=== PATIENT | female | born 1995 | race American Indian/Alaskan Native ===

== ENCOUNTER 2019-05-25 10:54 | Emergency (ER) | payer SELFPAY ==
[2019-05-25 11:19] VITALS: BP 121/90
--- NOTE | 2019-05-25 12:04 | XRay Report ---
RIGHT HAND 3 VIEWS INDICATION: PAIN/SWELLING R/T INJURY. COMPARISON: No relevant prior imaging study available. FINDINGS: There is a predominantly transverse fracture through the distal shaft of the little finger metacarpal with mild volar angulation of the distal fracture fragment. No additional fractures are seen. There is mild ulnar sided soft tissue swelling. IMPRESSION: 1. Boxer's fracture at the finger metacarpal. Signer Name: Lizandro Alexander MD Signed: 05/25/2019 11:59 AM Workstation Name: [email or web address]
== END 2019-05-25 20:08 | disposition left against medical advice (07) ==
LOC: ED 10:54
DX: M79.641 Pain in right hand (principal); Z53.21 Procedure and treatment not carried out due to patient leaving prior to being seen by health care provider

== ENCOUNTER 2019-07-14 13:48 | Emergency (ER) | payer SELFPAY ==
[2019-07-14 14:58] VITALS: BP 135/75
--- NOTE | 2019-07-14 14:59 | Emergency Department Report ---
Chief Complaint: Medical Clearance Stated Complaint: POSS PREG Time Seen by Provider: 07/14/19 14:57 - Exam Vital Signs: Vital Signs 07/14/19 14:55 Temperature 97.9 F Pulse Rate 86 Respiratory 18 Rate Blood Pressure 135/75 O2 Sat by Pulse 100 Oximetry MSE screening note: Ms. Montgomery presents with missed period. No pain or vaginal bleeding. Wants to rule out . MSe completed. Given outpatient instructions. ED Disposition for MSE Condition: Stable
== END 2019-07-14 16:03 | disposition left against medical advice (07) ==
LOC: ED 13:48
DX: Z53.21 Procedure and treatment not carried out due to patient leaving prior to being seen by health care provider (principal)

== ENCOUNTER 2019-08-08 15:12 | Emergency (ER) | payer SELFPAY ==
--- NOTE | 2019-08-08 17:32 | Event Note ---
ED Screening Note ED Screening Note: The patient was seen in triage for and went to clinic and they advised her to come to ED as they couldnt find a pole or HR. Labs/imaging ordered to evaluate for a cause of this complaint. Vital signs reviewed, patient awake and alert in NAD. This initial assessment/diagnostic orders/clinical plan/treatment(s) is/are subject to change based on patients health status, clinical progression and re- assessment by fellow clinical providers in the ED. Further treatment and workup at subsequent clinical providers discretion. Patient/guardian urged not to elope from the ED as their condition may be serious if not clinically assessed and managed. Initial orders include:
--- NOTE | 2019-08-08 19:35 | Emergency Department Report ---
ED HPI - General Chief complaint: Recheck/Abnormal Lab/Rx Stated complaint: MISCARRAGE Time Seen by Provider: 08/08/19 17:27 Source: patient Mode of arrival: Ambulatory Limitations: No Limitations - History of Present Illness Initial comments: Patient is a 23-year-old female presents emergency room with complaints of an issue with her ultrasound. She states that she went to a clinic in [place] about her first ultrasound today and states that they could not find a heartbeat but states that they saw a gestational sac and was advised to be seen in the ED. she states that she is approximately 7 weeks . She states her last menstrual cycle was June 13. She denies any vaginal bleeding, urinary symptoms, abdominal pain, nausea, vomiting, diarrhea. She has a past medical history of asthma. She denies any allergies to medications. /P:2/A:0 - Related Data Allergies Allergy/AdvReac Type Severity Reaction Status Date / Time No Known Allergies Allergy Unverified 05/25/19 10:55 ED Review of Systems ROS: Stated complaint: MISCARRAGE Other details as noted in HPI Comment: All other systems reviewed and negative ED Past Medical Hx - Past Medical History Previous Medical History?: Yes Hx Asthma: Yes - Surgical History Past Surgical History?: Yes - Social History Smoking Status: Never Smoker Substance Use Type: None ED Physical Exam - General Limitations: No Limitations General appearance: alert, in no apparent distress - Head Head exam: Present: atraumatic, normocephalic - Eye Eye exam: Present: normal appearance - ENT ENT exam: Present: mucous membranes moist - Respiratory Respiratory exam: Present: normal lung sounds bilaterally. Absent: respiratory distress, wheezes, rales, rhonchi, stridor, chest wall tenderness, accessory muscle use, decreased breath sounds, prolonged expiratory - Cardiovascular Cardiovascular Exam: Present: regular rate, normal rhythm, normal heart sounds. Absent: systolic murmur, diastolic murmur, rubs, gallop - GI/Abdominal GI/Abdominal exam: Present: soft, normal bowel sounds. Absent: distended, tenderness, guarding, rebound, rigid - Neurological Exam Neurological exam: Present: alert, oriented X3 - Psychiatric Psychiatric exam: Present: normal affect, normal mood - Skin Skin exam: Present: warm, dry, intact ED Course Vital Signs 08/08/19 08/08/19 08/08/19 15:17 17:28 19:50 Temperature 97.8 F 97.8 F Pulse Rate 79 83 90 Respiratory 18 18 18 Rate Blood Pressure 89/72 124/77 Blood Pressure 124/77 131/86 [Left] O2 Sat by Pulse 100 99 100 Oximetry ED Medical Decision Making - Lab Data Lab Results 08/08/19 08/08/19 Range/Units 17:32 17:32 HCG, Quant 21021 H (0-4) mIU/mL Blood Type O POSITIVE Ord Rhogam Gestat Weeks Rh pos WEEKS - Radiology Data Radiology results: report reviewed Obstetrical ultrasound. HISTORY: Pelvic pain. FINDINGS: The uterus measures 11.1 x 6.7 x 8.1 cm. A gestational sac dated 7 weeks contains no yolk sac or pole. Right ovary measures 3.5 x 2.1 x 4.1 cm and contains a 2.3 cm complex lesion. Left ovary measures 3.1 x 2.1 x 3.2 cm. Both ovaries contain flow. IMPRESSION: 1. And a gestational sac dated 7 weeks. 2. Small complex lesion right ovary is nonspecific. Most likely, this represents a hemorrhagic cyst. Signer Name: Carlos Aguiar MD Signed: 08/08/2019 7:28 PM Workstation Name: [id number] Transcribed By: ES Dictated By: Carlos Aguiar MD Electronically Authenticated By: Carlos Aguiar MD Signed Date/Time: 08/08/191927 DD/ 25 TD/TT: - Medical Decision Making Patient is a 23-year-old female presents emergency room with complaints of an issue with her ultrasound. She states that she went to a clinic in [place] about her first ultrasound today and states that they could not find a heartbeat but states that they saw a gestational sac and was advised to be seen in the ED. she states that she is approximately 7 weeks . She states her last menstrual cycle was June 13. She denies any vaginal bleeding, urinary symptoms, abdominal pain, nausea, vomiting, diarrhea. She has a past medical history of asthma. She denies any allergies to medications. /P:2/A:0[place] [address]. pt is Rh positive. OB US: 1. And a gestational sac dated 7 weeks. 2. Small complex lesion right ovary is nonspecific. Most likely, this represents a hemorrhagic cyst. Discussed ultrasound findings with patient. Advised patient that she would need to have a repeat hCG quant in 2 days. Patient has gestational sac but no yolk sac or heart rate, discussed with the patient that this could be due to early or could be due to miscarriage. Discussed the importance of follow-up with patient. advised pt to please take a vitamin over the counter daily. you need to have a repeat hcg quant in 2 days. please follow up with the [facility]. Return to the emergency room for any new or worsening symptoms. - Differential Diagnosis IUP, ectopic, molar , threatened miscarriage, ovarian cyst Critical care attestation.: If time is entered above; I have spent that time in minutes in the direct care of this critically ill patient, excluding procedure time. ED Disposition Clinical Impression: Threatened miscarriage, Right ovarian cyst Disposition: DC- TO HOME OR SELFCARE Is pt being admited?: No Does the pt Need Aspirin: No Condition: Stable Instructions: Threatened Miscarriage (ED) Additional Instructions: please take a vitamin over the counter daily. you need to have a repeat hcg quant in 2 days. please follow up with the [facility]. Return to the emergency room for any new or worsening symptoms. Referrals: [facility] [Provider Group] - 2-3 Days [facility] [Provider Group] - 2-3 Days [facility] [Provider Group] - 2-3 Days Time of Disposition: 19:38 Print Language: PARAGUAYAN
[2019-08-08 20:05] VITALS: BP 131/86
== END 2019-08-08 19:50 | disposition home or self-care (01) ==
LOC: ED 15:12
DX: O20.0 Threatened abortion (principal); O99.511 Diseases of the respiratory system complicating pregnancy, first trimester; O34.81 Maternal care for other abnormalities of pelvic organs, first trimester; N83.291 Other ovarian cyst, right side; J45.909 Unspecified asthma, uncomplicated; Z3A.01 Less than 8 weeks gestation of pregnancy
CPT/HCPCS: 36415; 76801; 76817; 84702; 86900; 86901; 99283

== ENCOUNTER 2019-08-10 09:38 | Emergency (ER) | payer SELFPAY ==
[2019-08-10 09:48] VITALS: BP 120/64
--- NOTE | 2019-08-10 12:02 | Emergency Department Report ---
Chief Complaint: Medical Clearance Stated Complaint: POSS MISCARRAGE - HPI History of Present Illness: 23 y/o female returns to ER to have HCG repeated. Patient was seen on 08/08/19 [place] [address] [place] [address]. US from 08/08/19 shows a 7 week gestational sack with no yolk. Denies any pain or vag spotting. - Exam Vital Signs: Vital Signs 08/10/19 09:43 Temperature 98.5 F Pulse Rate 85 Respiratory 18 Rate Blood Pressure 120/64 O2 Sat by Pulse 95 Oximetry Physical Exam: AxO times 3 NAD MSE screening note: Focused history and physical exam performed. Due to findings the following was ordered: 23 y/o female returns to ER to have HCG repeated. Patient was seen on 08/08/19 [place] [address] [place] [address]. US from 08/08/19 shows a 7 week ges tational sack with no yolk. ED Medical Decision Making - Lab Data Lab Results 08/10/19 Range/Units 10:11 HCG, Quant 40814 H (0-4) mIU/mL - Radiology Data Radiology results: report reviewed Patient: GAY MILIAN MR#: [id number] : 1995 Acct:[id number] Age/Sex: 23 / F ADM Date: 08/08/19 Loc: ED Attending Dr: Ordering Physician: IRASEMA FLAHERTY Date of Service: 08/08/19 Procedure(s): US OB transvaginal Accession Number(s): [id number] cc: IRASEMA FLAHERTY Obstetrical ultrasound. HISTORY: Pelvic pain. FINDINGS: The uterus measures 11.1 x 6.7 x 8.1 cm. A gestational sac dated 7 weeks contains no yolk sac or pole. Right ovary measures 3.5 x 2.1 x 4.1 cm and contains a 2.3 cm complex lesion. Left ovary measures 3.1 x 2.1 x 3.2 cm. Both ovaries contain flow. IMPRESSION: 1. And a gestational sac dated 7 weeks. 2. Small complex lesion right ovary is nonspecific. Most likely, this represents a hemorrhagic cyst. Signer Name: Carlos Aguiar MD Signed: 08/08/2019 7:28 PM Workstation Name: [id number] Transcribed By: ES Dictated By: Carlos Aguiar MD Electronically Authenticated By: Carlos Aguiar MD Signed Date/Time: 08/08/191927 DD/ 25 TD/TT: ED Disposition for MSE Clinical Impression: Threatened miscarriage Disposition: Z- MED SCREENING EXAM-LEFT Is pt being admited?: No Does the pt Need Aspirin: No Condition: Stable Additional Instructions: Recommend to follow up at your [facility] . Need to have a repeat US in 2 weeks. Referrals: [facility], [Primary Care Provider] - 3-5 Days [facility] [Provider Group] - 3-5 Days [facility] [Provider Group] - 3-5 Days
== END 2019-08-10 12:44 | disposition left against medical advice (07) ==
LOC: ED 09:38
DX: O20.0 Threatened abortion (principal); Z3A.01 Less than 8 weeks gestation of pregnancy
CPT/HCPCS: 36415; 84702; 99282

== ENCOUNTER 2019-08-25 21:28 | Emergency (ER) | payer SELFPAY ==
[2019-08-25 22:43] VITALS: BP 129/80
[2019-08-25 23:19] LABS: Basophils % (Auto) 0.9 % (0.0-1.8); Eosinophils # (Auto) 0.1 K/mm3 (0.0-0.4); Eosinophils % (Auto) 1.4 % (0.0-4.3); Hemoglobin 12.5 gm/dl (10.1-14.3); Lymphocytes # (Auto) 2.3 K/mm3 (1.2-5.4); Lymphocytes % (Auto) 51.5 % (13.4-35.0); Mean Corpuscular HGB Conc 34 % (30-34); Mean Corpuscular Volume 81 fl (79-97); Monocytes # (Auto) 0.3 K/mm3 (0.0-0.8); Monocytes % (Auto) 7.7 % (0.0-7.3); Platelet Count 178 K/mm3 (140-440); Red Blood Count 4.59 M/mm3 (3.65-5.03); Red Cell Distribution Width 15.8 % (13.2-15.2)
[2019-08-26 00:19] LABS: Bilirubin,Urine NEG (Negative); Blood,Urine NEG (Negative); Calcium Oxalate Crystals,Urine 2+; Color,Urine Yellow (Yellow); Mucus,Urine 3+ /HPF; Protein,Urine <15 mg/dL mg/dL (Negative); Urobilinogen,Urine < 2.0 mg/dL (<2.0)
--- NOTE | 2019-08-26 01:02 | Ultrasound Report ---
US OB <= 14 weeks fetus INDICATION / CLINICAL INFORMATION: vaginal bleed. COMPARISON: 08/08/2019 FINDINGS: A gestational sac measuring 3.0 cm is seen in the uterus. No pole or yolk sac is identified. Th e ovaries are normal in size and appearance. IMPRESSION: Gestational sac in the uterus without a pole or yolk sac identified. Gestational sac measures 8 weeks 1 day gestational age Signer Name: Dash Broussard MD FACR Signed: 08/26/2019 12:57 AM Workstation Name: [email or web address]
[2019-08-26] MEDS ORDERED: HALOPERIDOL LACTATE 5 MG/1 ML INJ ONE (01:26)
--- NOTE | 2019-08-26 01:26 | Emergency Department Report ---
ED Female HPI - General Chief complaint: Vaginal Bleeding Stated complaint: VAGINAL BLEED (PREG) Time Seen by Provider: 08/26/19 01:16 Source: patient Mode of arrival: Ambulatory Limitations: No Limitations - History of Present Illness Initial comments: Patient reports vaginal bleeding that started today. She says she has had vaginal bleeding on and off antedates more and she when she wipes she sees blood. She says she is but is not sure how far along she is. Last menstrual period was 06/13/2019. Medical records report patient was here twice in July and she had hormone done. She also had ultrasound done which shows that she was 7 weeks on August 07 Complaint: vaginal bleeding, pelvic pain -: This afternoon Radiation: suprapubic Severity: moderate Severity scale (0 -10): 6 Quality: cramping Consistency: intermittent Improves with: none Worsens with: none Are you Now?: Yes Associated Symptoms: vaginal bleeding, abdominal pain. denies: vaginal discharge, nausea/vomiting, fever/chills, headaches, loss of appetite, dysuria, hematuria, rash, seizure, shortness of breath, syncope, weakness - Related Data Sexually active: Yes Allergies Allergy/AdvReac Type Severity Reaction Status Date / Time No Known Allergies Allergy Verified 08/26/19 01:33 ED Review of Systems ROS: Stated complaint: VAGINAL BLEED (PREG) Other details as noted in HPI Constitutional: denies: chills, fever, weakness ENT: denies: ear pain, throat pain, congestion Respiratory: denies: cough, orthopnea, shortness of breath, SOB with exertion, SOB at rest, stridor, wheezing Cardiovascular: denies: chest pain, palpitations, dyspnea on exertion, edema, syncope Gastrointestinal: abdominal pain. denies: nausea, vomiting, diarrhea, constipation, hematemesis, hematochezia Genitourinary: abnormal menses. denies: dysuria, frequency, hematuria, discharge, dyspareunia Musculoskeletal: denies: back pain, joint swelling, arthralgia, myalgia Skin: denies: rash Neurological: denies: headache, numbness, vertigo ED Past Medical Hx - Past Medical History Previous Medical History?: Yes Hx Asthma: Yes - Surgical History Past Surgical History?: No - Family History Family history: hypertension - Social History Smoking Status: Never Smoker Substance Use Type: None ED Physical Exam - General Limitations: No Limitations General appearance: alert, in no apparent distress - Head Head exam: Present: atraumatic, normocephalic - Eye Eye exam: Present: normal appearance, PERRL, EOMI Pupils: Present: normal accommodation - ENT ENT exam: Present: normal exam, normal orophraynx, mucous membranes moist, TM's normal bilaterally, normal external ear exam - Neck Neck exam: Present: normal inspection, full ROM. Absent: tenderness, lymphadenopathy - Respiratory Respiratory exam: Present: normal lung sounds bilaterally. Absent: respiratory distress, chest wall tenderness - Cardiovascular Cardiovascular Exam: Present: regular rate, normal rhythm, normal heart sounds - GI/Abdominal GI/Abdominal exam: Present: soft, normal bowel sounds. Absent: distended, tenderness, organomegaly, mass, bruit, pulsatile mass, hernia - External exam: Present: bleeding (Scant bleeding). Absent: erythema, swelling, lesions, lacerations, ecchymosis Speculum exam: Present: vaginal bleeding (Scant bleeding). Absent: erythema, vaginal discharge, cervical discharge, foreign body, tissue, laceration - Expanded Exam Expanded Female exam: Absent: vaginal laceration, tissue present in vagina, herpetic lesions, vulvar erythema, vulvar tenderness External exam: Present: normal Amniotic fluid: Present: none Speculum exam: Present: cervical OS closed, vaginal bleeding (Scant) - Extremities Exam Extremities exam: Present: normal inspection, full ROM, normal capillary refill, other (No cce. + 2 pulses in all extremities, no neurovascular compromise). Absent: tenderness, pedal edema, joint swelling, calf tenderness - Back Exam Back exam: Present: normal inspection, full ROM, other (Ambulates without any difficulties). Absent: CVA tenderness (R), CVA tenderness (L) - Neurological Exam Neurological exam: Present: alert, oriented X3, normal gait - Psychiatric Psychiatric exam: Present: normal affect, normal mood - Skin Skin exam: Present: warm, dry, intact, normal color. Absent: rash ED Course Vital Signs 08/25/19 08/25/19 22:42 22:46 Temperature 97.8 F 97.5 F L Pulse Rate 86 72 Respiratory 16 18 Rate Blood Pressure 129/80 129/80 O2 Sat by Pulse 99 100 Oximetry - Reevaluation(s) Reevaluation #1: 08/26/19 03:16 Stable throughout ED course and I spoke with Dr. Ruiz BILLING DEPARTMENT SUPERVISOR who wants patient to follow-up in 1 to 2 days at [facility] BILLING DEPARTMENT SUPERVISOR ED Medical Decision Making - Lab Data Result diagrams: 08/25/19 23:05 Lab Results 08/25/19 08/25/19 08/25/19 Range/Units 23:05 23:05 Unknown WBC 4.5 (4.5-11.0) K/mm3 RBC 4.59 (3.65-5.03) M/mm3 Hgb 12.5 (10.1-14.3) gm/dl Hct 37.0 (30.3-42.9) % MCV 81 (79-97) fl MCH 27 L (28-32) pg MCHC 34 (30-34) % RDW 15.8 H (13.2-15.2) % Plt Count 178 (140-440) K/mm3 Lymph % (Auto) 51.5 H (13.4-35.0) % [place] % (Auto) 7.7 H (0.0-7.3) % Eos % (Auto) 1.4 (0.0-4.3) % Baso % (Auto) 0.9 (0.0-1.8) % Lymph # 2.3 (1.2-5.4) K/mm3 Cascade # 0.3 (0.0-0.8) K/mm3 Eos # 0.1 (0.0-0.4) K/mm3 Baso # 0.0 (0.0-0.1) K/mm3 Seg Neutrophils % 38.5 L (40.0-70.0) % Seg Neutrophils # 1.7 L (1.8-7.7) K/mm3 HCG, Quant 7736 H (0-4) mIU/mL Urine Color Yellow (Yellow) Urine Turbidity Clear (Clear) Urine pH 5.0 (5.0-7.0) Ur Specific [place] 1.030 (1.003-1.030) Urine Protein <15 mg/dl (Negative) mg/dL Urine Glucose (UA) Neg (Negative) mg/dL Urine Ketones Neg (Negative) mg/dL Urine Blood Neg (Negative) Urine Nitrite Neg (Negative) Urine Bilirubin Neg (Negative) Urine Urobilinogen < 2.0 (<2.0) mg/dL Ur Leukocyte Esterase Neg (Negative) Urine WBC (Auto) 1.0 (0.0-6.0) /HPF Urine RBC (Auto) 1.0 (0.0-6.0) /HPF U Epithel Cells (Auto) 1.0 (0-13.0) /HPF Calcium Oxalate Crystal 2+ Urine Mucus 3+ /HPF - Radiology Data Radiology results: report reviewed OB ultrasound less than 14 weeks dictated by radiologist and report reviewed by myself. Please see details below Print Report Referring Physician:ED CHACHAPatient Name:GAY MILIANPatient ID:[id number] of :[id number]:FemaleAccession:[id number] Date:[id number] Status:Finalized Findings [facility] [address] [id number] Ultrasound Report Signed Patient: GAY MILIAN MR#: [id number] : 1995 Acct:[id number] Age/Sex: 23 / F ADM Date: 08/25/19 Loc: ED Attending Dr: Ordering Physician: CORNELIUS BURNHAM MD Date of Service: 08/25/19 Procedure(s): US OB <= 14 weeks fetus Accession Number(s): [id number] cc: CORNELIUS BURNHAM MD US OB <= 14 weeks fetus INDICATION / CLINICAL INFORMATION: vaginal bleed. COMPARISON: 08/08/2019 FINDINGS: A gestational sac measuring 3.0 cm is seen in the uterus. No pole or yolk sac is identified. The ovaries are normal in size and appearance. Signer Name: Dash Broussard MD FACR Signed: 08/26/2019 12:57 AM Workstation Name: [id number] Transcribed By: MS Dictated By: Dash Broussard MD Electronically Authenticated By: Dash Broussard MD Signed Date/Time: 08/26/1956 DD/ TD/TT: - Medical Decision Making Patient stable throughout ED course. I spoke with Dr. Ruiz who is BILLING DEPARTMENT SUPERVISOR at [facility] and she wants patient to follow-up with her in office in 1 to 2 days. Review of medical record shows that quantitative hormone is trending downwards. This is suspect of miscarriage. I explained this to the patient and I also gave lab report and ultrasound report to patient and explained to Dr. Ruiz. Patient voiced understanding. Her vital signs are stable she is afebrile. Please see physical exam note for pelvic exam findings. Patient discharged home in stable condition with instruction to follow-up with Dr. Ruiz IMPRESSION: OB ultrasound less than 14 weeks/transvaginal Gestational sac in the uterus without a pole or yolk sac identified. Gestational sac measures 8 weeks 1 day gestational age - Differential Diagnosis Threatened miscarriage, ectopic , UTI Critical care attestation.: If time is entered above; I have spent that time in minutes in the direct care of this critically ill patient, excluding procedure time. ED Disposition Clinical Impression: Threatened miscarriage in early , Abdominal pain during in first trimester Disposition: DC-01 TO HOME OR SELFCARE Is pt being admited?: No Does the pt Need Aspirin: No Condition: Stable Instructions: Abdominal Pain in (ED), Threatened Miscarriage (ED) Additional Instructions: Follow-up with your BILLING DEPARTMENT SUPERVISOR in 1 to 2 days If your condition worsens, return to the emergency room Please be on bedrest until you are directed by Dr. Ruiz. Avoid sexual activity and do not insert fingers or any other object in vaginal area. Referrals: JONATAN RUIZ MD [Staff Physician] - 08/27/19 Forms: Work/School Release Form(ED)
[2019-08-26] MEDS ORDERED: LORazepam 2 MG/ML VIAL ONE (01:27)
== END 2019-08-26 03:32 | disposition home or self-care (01) ==
LOC: ED 21:28
DX: O20.0 Threatened abortion (principal); Z3A.01 Less than 8 weeks gestation of pregnancy
CPT/HCPCS: 36415; 76801; 81001; 84702; 85025; 86900; 86901; J1630; J2060